=== PATIENT | male | born 1975 | race Caucasian/White ===

== ENCOUNTER 2017-05-27 19:01 | Inpatient (IN) | payer BC, OTHER ==
[~2017-05-27] VITALS: Ht 177.8 cm; Wt 68.0 kg
[2017-05-27] MEDS ORDERED: hydrALAZINE HCL 50 MG TABLET PO PRN (20:30)
[2017-05-27] MEDS ORDERED: LOPERAMIDE HCL 2 MG CAPSULE PO PRN ×2 (20:30)
[2017-05-27] MEDS ORDERED: ACETAMINOPHEN 325 MG TABLET PO PRN (20:30)
[2017-05-27] MEDS ORDERED: ONDANSETRON ODT 4 MG TAB.RAPDIS SL PRN (20:30)
[2017-05-27] MEDS ORDERED: IBUPROFEN 400 MG TABLET PO PRN (20:30)
[2017-05-27] MEDS ORDERED: THIAMINE HCL 200 MG/2 ML VIAL IM ONE (20:30)
[2017-05-27] MEDS ORDERED: LORAZEPAM 1 MG TABLET PO PRN ×2 (20:30)
[2017-05-27] MEDS ORDERED: MAG HYDROX/AL HYDROX/SIMETH 30 ML LIQUID UDC PO PRN (20:30)
[2017-05-27] MEDS ORDERED: LORAZEPAM 2 MG/1 ML VIAL IM PRN (20:30)
[2017-05-27] MEDS ORDERED: ONDANSETRON 4 MG/2 ML VIAL IM PRN (20:30)
[2017-05-27] MEDS ORDERED: MIRALAX 17 GM POWD.PACK PO PRN (20:30)
--- NOTE | 2017-05-27 20:30 | NUR ---
INTAKE ASSESSMENT BP:107/75 HR:105 SpO2:97% RR:18 T:98 Pt denies pain Pt is in stable condition and able to be admitted on the unit. Unit protocols regarding medications and vital signs every four hours were explained. Pt verbalized understanding. Will continue admission upon arrival on the unit.
--- NOTE | 2017-05-27 21:00 | NUR ---
ADMISSION NOTE CIWA:6 Pt arrived ambulatory from [facility] to the third floor accompanied by a CLINICAL HAEMATOLOGIST at 2048. Pt is a 41 year old male admitted on 05/27/17 for ETOH dependency. Pt is full code with NKA. He reports a PMHx of anxiety, depression, CHF, ascities, hypothyroidism and seizure one year ago related to withdrawal. He has a PCP by the name of Dr. Pitts located in [place]. He brought in several home medications which have been reconciled. He reports he has been to detox before in [place] in January 2017 but unable to recall name of place. He states he was hospitalized in January 2017 related to complaints of SOB for 10 days and reports that is his longest period of sobriety. He describes his current use as: 1.ETOH (vodka) pint or 6 pack of beer daily for 18 years. Last dose: pint of vodka on 05/26/17 2.Marijuana 2-3 hits 3x/week for 18 years Last dose: 2 hits on 05/26/17 He describes his withdrawal symptoms as : insomnia, anxiety, chills, sweats and tremors Upon assessment, pt is alert and oriented x4, anxious and cooperative. Speech is clear and audible. Heart rate regular. Pt denies chest pain of shortness of breath. Lung sounds clear in all lobes, abdomen soft. Bowel sounds present in all quadrants. Last BM (05/27/17) pt reports that BM is regular. Pts skin is warm, dry and intact. MD aware of pts admission. Pt oriented to room and unit. Pt is safe with bed locked in lowest position, side rails up and padded x2, breathing even and unlabored. Will continue to monitor.
[2017-05-27 21:04] LABS: *AMPHETAMINE, URINE NEGATIVE (NEGATIVE); *BARBITURATE, URINE NEGATIVE (NEGATIVE); *CANNABINOID, URINE POSITIVE (NEGATIVE); *COCCAINE, URINE NEGATIVE (NEGATIVE); *OPIATE, URINE NEGATIVE (NEGATIVE); *PHENCYCLIDINE SCREEN,URINE NEGATIVE (NEGATIVE)
[2017-05-27 21:46] LABS: BASOPHILS % (AUTO) 0.9 % (0.0-2.0); EOSINOPHILS % (AUTO) 0.6 % (0.0-7.0); HEMATOCRIT 31.3 % (40-50); HEMOGLOBIN 10.1 G/DL (14.0-18.0); LYMPHOCYTES # (AUTO) 1.4 K/UL (0.8-4.8); LYMPHOCYTES % (AUTO) 25.2 % (20.5-51.5); MEAN CORPUSCULAR HEMOGLOBIN 29.5 UUG (27.0-31.0); MEAN CORPUSCULAR HGB CONC 32 g/dL (32.0-37.0); MEAN CORPUSCULAR VOLUME 91.5 FL (82.0-92.0); MONOCYTES # (AUTO) 0.4 K/UL (0.1-1.30); MONOCYTES % (AUTO) 6.6 % (0.0-11.0); NEUTROPHILS # (AUTO) 3.6 K/UL (1.8-8.9); NEUTROPHILS % (AUTO) 66.7 % (38.5-71.5); PLATELET COUNT (AUTO) 231 K/UL (150-450); RED BLOOD CELL COUNT(AUTO) 3.42 MIL/UL (4.7-6.1); WHITE BLOOD COUNT (AUTO) 5.4 K/UL (4.0-11.2)
--- NOTE | 2017-05-27 22:00 | NUR ---
PRN ATIVAN Pt complains of anxiety and restlessness. CIWA: 6. PRN Ativan 1 mg administered as ordered. Will monitor effectiveness.
[2017-05-27 22:01] LABS: ALANINE AMINOTRANSFERASE 14 U/L (16-63); ALKALINE PHOSPHATASE 146 U/L (50-136); AMYLASE 76 U/L (25-115); ASPARTATE AMINOTRANSFERASE 30 U/L (15-37); BILIRUBIN,TOTAL 0.9 mg/dL (0.2-1.0); CARBON DIOXIDE 30 mmol/L (21-32); CHLORIDE 102 mmol/L (98-107); GLUCOSE 106 mg/dL (74-106); LIPASE 381 U/L (73-393); MAGNESIUM 1.6 mg/dL (1.8-2.4); POTASSIUM 3.9 mmol/L (3.5-5.1); TOTAL PROTEIN, SERUM 7.8 g/dL (6.4-8.2); UREA NITROGEN, BLOOD 18 mg/dL (7-18)
[2017-05-27 22:08] LABS: ETHANOL 252 MG/DL (0-0)
--- NOTE | 2017-05-27 23:00 | NUR ---
PRN ATIVAN REASSESSMENT PRN medication is effective. Pt is lying in bed with eyes closed noted to be asleep. No facial grimacing noted. Breathing is even and unlabored. Safety measures in place. Will monitor.
[2017-05-27] MEDS ORDERED: LISI-607 PO (23:11)
[2017-05-27] MEDS ORDERED: THIA100T74 PO (23:11)
[2017-05-27] MEDS ORDERED: POTA20TA10 PO (23:11)
[2017-05-27] MEDS ORDERED: MELO-105 PO (23:11)
[2017-05-27] MEDS ORDERED: METO-302 PO (23:11)
[2017-05-27] MEDS ORDERED: ASPI81TA31 PO (23:11)
[2017-05-27] MEDS ORDERED: PANT40TA4 PO (23:11)
[2017-05-27] MEDS ORDERED: FOLI1TAB16 PO (23:11)
[2017-05-27] MEDS ORDERED: SPIR25TA PO (23:11)
[2017-05-27] MEDS ORDERED: FURO40TA5 PO (23:11)
[2017-05-27] MEDS ORDERED: CITA20TA19 PO (23:11)
[2017-05-27] MEDS ORDERED: LEVO50TA8 PO (23:11)
[2017-05-27] MEDS ORDERED: MAGNESIUM OXIDE 400 MG TABLET PO ONE (23:45)
[2017-05-28] VITALS: BP 97/70
--- NOTE | 2017-05-28 | NUR ---
CIWA DEFERRED Pt is lying in bed with eyes closed noted to be asleep. Breathing is even and unlabored. Safety measures in place. Will monitor.
[2017-05-28 04:00] VITALS: BP 107/79
--- NOTE | 2017-05-28 04:00 | NUR ---
CIWA DEFERRED CIWA deferred d/t pt is lying in bed with eyes closed noted to be asleep. Breathing is even and unlabored. Safety measures in place. Will monitor.
--- NOTE | 2017-05-28 07:10 | NUR ---
END OF SHIFT Pt is a 41 year old male admitted on 05/27/17 for ETOH dependency. Pt is full code with NKA. He is on a strict 2 gram sodium controlled diet. He reports a PMHx of anxiety, depression, CHF, ascities, hypothyroidism and seizure one year ago related to withdrawal. He received PRN Ativan at 2200 for CIWA:6. Pts magnesium was 1.6 which was replaced. He has a pending order for an echocardiogram and EKG. He slept a total of 7hrs, Intake: 350mL, Void: x1, BM:0, CIWA:6. Pt remains alert and oriented x4, breathing is even and unlabored. Safety measures in place. Endorsed to oncoming shift.
--- NOTE | 2017-05-28 07:15 | NUR ---
Start of shift note SBAR report rcv'd. Pt was admitted for ETOH dependence and marijuana use. Pt is a full code, on a strict 2G NA diet and denies any allergies. Pt is starting a 5 day ativan taper today to manage his s/s of withdrawal. Pt has a PMHx anxiety, depression, CHF, ascites, withdrawal induced seizure, hypothyroidism and cirrhosis. Pt is currently resting in bed, pt is requesting to have his medications at 0800. Will administer medications per MD order. All other needs addressed at this time. Will continue to monitor pt.
[2017-05-28 08:00] VITALS: BP 125/95
[2017-05-28] MEDS: MULTIVITAMINS,THERAPEUTIC TABLET PO SCH (08:00)
[2017-05-28] MEDS: FOLIC ACID 1 MG TABLET PO SCH (08:00)
[2017-05-28] MEDS: LORAZEPAM 1 MG TABLET PO SCH ×4 (08:00→21:28)
[2017-05-28] MEDS: THIAMINE HCL 100 MG TABLET PO SCH (08:00)
[2017-05-28] MEDS ORDERED: [UNRECOGNIZED DRUG - OTHER] PO SCH (09:00)
[2017-05-28] MEDS ORDERED: PANTOPRAZOLE PO SCH (09:00)
[2017-05-28] MEDS ORDERED: ASPIRIN 81 MG TAB.CHEW PO SCH (09:00)
[2017-05-28] MEDS ORDERED: METOPROLOL SUCCINATE XL 25 MG TAB.SR.24H PO SCH (09:00)
[2017-05-28] MEDS ORDERED: LISINOPRIL 5 MG TABLET PO SCH (09:00)
[2017-05-28] MEDS ORDERED: SPIRONOLACTONE 25 MG TABLET PO SCH (09:00)
[2017-05-28] MEDS ORDERED: LEVOTHYROXINE PO SCH (09:00)
[2017-05-28] MEDS ORDERED: [UNRECOGNIZED DRUG - OTHER] PO SCH (09:00)
[2017-05-28] MEDS ORDERED: [UNRECOGNIZED DRUG - OTHER] PO SCH (09:00)
[2017-05-28] MEDS ORDERED: METOPROLOL SUCCINATE PO SCH (09:00)
[2017-05-28] MEDS ORDERED: FUROSEMIDE 40 MG TABLET PO SCH ×2 (09:00→17:00)
[2017-05-28] MEDS ORDERED: TUBERCULIN,PURIF.PROT.DERIV. 5 TU/0.1 ML TEST ID ONE (09:00)
--- NOTE | 2017-05-28 09:16 | NUR ---
MD communication Notified Dr Mccollum of ECG results "sinus tachycardia, possible left atrial enlargement, left axis deviation, anteroseptal infarct age undetermined, abnormal ECG". NNO at this time. Will continue to monitor pt.
[2017-05-28] MEDS: [UNRECOGNIZED DRUG - OTHER] PO SCH (09:33)
[2017-05-28] MEDS: LISINOPRIL PO SCH (09:33)
[2017-05-28] MEDS: SPIRONOLACTONE PO SCH (09:35)
[2017-05-28] MEDS: ASPIRIN PO SCH (09:35)
[2017-05-28] MEDS: [UNRECOGNIZED DRUG - OTHER] PO SCH (09:35)
[2017-05-28] MEDS: [UNRECOGNIZED DRUG - OTHER] PO SCH (09:35)
[2017-05-28 12:00] VITALS: BP 116/90
--- NOTE | 2017-05-28 12:15 | NUR ---
MD communication Per radiologist, pt has an ejection fraction of 10-15%, Dr Mccollum notified. NNO.
--- NOTE | 2017-05-28 12:30 | NUR ---
MD communication Pt noted to have a heart rate of 122. Dr Mccollum to place orders. Pt c/o SOB, Dr Mccollum ordered O2 via NC to titrate SpO2 >95%. Pt placed on NC, 2LPM. Pt denies any chest pain or discomfort. SOB alleviated with O2.
--- NOTE | 2017-05-28 12:30 | NUR ---
Pt education Educated pt about fluid restriction, pt verbalized his understanding. States that he keeps track of fluids in his head. Gave pt paper to track his drinks. Pt verbalized his understanding.
[2017-05-28] MEDS ORDERED: METOPROLOL TARTRATE 25 MG TABLET PO ONE (13:00)
--- NOTE | 2017-05-28 13:56 | NUR ---
Reassessment of one time order Pt Heart rate continues at 122. Dr Mccollum aware. NNO. Stated senior benefits manager has been consulted and will see the patient today. Will continue to monitor pt
[2017-05-28 16:00] VITALS: BP 109/81
[2017-05-28] MEDS ORDERED: FUROSEMIDE 80 MG TABLET PO SCH (17:00)
--- NOTE | 2017-05-28 19:09 | NUR ---
End of shift note Pt was admitted for ETOH dependence and marijuana use. Pt has a PMHx anxiety, depression, CHF, ascites, withdrawal induced seizure, hypothyroidism and cirrhosis. Pt is a full code, on a strict 2G NA and 1500mgl fluid restriction diet and denies any allergies. Pt is started his 5 day ativan taper, and is tolerating well. Pt had an EKG and ECHO done during the shift, Dr Mccollum is aware of the results and has called in a weighter for a consult. Pt is compliant with plan of care and states that he is used to being on a 1500ml fluid restricted diet and is keeping track of his fluids himself. Pt has no further complaints at this time. Will endorse SBAR to oncoming shift. All needs at this time. Will endorse SBAR to oncoming nurse. Pt drank to much fluid during the shift d/t noncompliance. Pt educated multiple times during the shift about importance of fluid restriction. Pt education reinforced, pt verbalized his understanding, instructed pt that he can only have a few sips of water over the night if needed. Pt instructed to not eat or drink anything that is not provided by dietary. Pt verbalized his understanding. HYDRO STATION OPERATOR and other staff aware. Dr Mccollum is aware.
--- NOTE | 2017-05-28 19:15 | NUR ---
START OF SHIFT Received 41 year old male patient admitted on 05/27/17 for ETOH dependency. Pt is full code with NKA. He is on a 2 gram sodium diet. He reports a PMhx of anxiety, depression, CHF, ascities, seizure one year ago related to withdrawal, hypothyroidism, and cirrhosis. He reports using ETOH (vodka) pint daily for 18 years. Last dose was pint on 05/26/17. And Marijuana 2-3 hits 3x/week. Last dose was 2 hits on 05/26/17. Per endorsement, pt received an echo this AM. Pt's EF is 10-15%. He is on room restriction and 1:1 d/t strict fluid restriction of 1500mL daily. He is using 02 via NC for comfort. Currently at 2L. Pt is alert and oriented x4, responsive to nurses greeting. Pt was educated regarding 1:1, room restriction and fluid restriction. Pt verbalized understanding. Safety measures in place. Will continue to monitor.
[2017-05-28 20:00] VITALS: BP 104/77
[2017-05-28 20:24] LABS: CREATININE 1.1 mg/dL (0.6-1.3); MAGNESIUM 1.5 mg/dL (1.8-2.4); POTASSIUM 3.6 mmol/L (3.5-5.1)
[2017-05-28] MEDS ORDERED: MAGNESIUM OXIDE 400 MG TABLET PO ONE (22:30)
[2017-05-28] MEDS ORDERED: MAGNESIUM OXIDE 400 MG TABLET ONE (23:15)
[2017-05-29] VITALS: BP 101/78
[2017-05-29] MEDS: [UNRECOGNIZED DRUG - OTHER] PO SCH (07:00)
[2017-05-29] MEDS: [UNRECOGNIZED DRUG - OTHER] PO SCH (07:00)
[2017-05-29] MEDS: LEVOTHYROXINE PO SCH (07:00)
[2017-05-29] MEDS: PANTOPRAZOLE PO SCH (07:00)
[2017-05-29 08:00] VITALS: BP 116/83
--- NOTE | 2017-05-29 08:14 | NUR ---
Medication administration Pt medication administered during medi-tech down time.
[2017-05-29] MEDS: THIAMINE HCL 100 MG TABLET PO SCH (09:00)
[2017-05-29] MEDS: [UNRECOGNIZED DRUG - OTHER] PO SCH (09:00)
[2017-05-29] MEDS: LORAZEPAM 1 MG TABLET PO SCH ×3 (09:00→20:48)
[2017-05-29] MEDS: SPIRONOLACTONE PO SCH (09:00)
[2017-05-29] MEDS: BUMETANIDE 1 MG TABLET PO SCH ×2 (09:00→17:38)
[2017-05-29] MEDS: [UNRECOGNIZED DRUG - OTHER] PO SCH (09:00)
[2017-05-29] MEDS: LISINOPRIL PO SCH (09:00)
[2017-05-29] MEDS: MULTIVITAMINS,THERAPEUTIC TABLET PO SCH (09:00)
[2017-05-29] MEDS: METOPROLOL SUCCINATE XL 25 MG TAB.SR.24H PO SCH (09:00)
[2017-05-29] MEDS: [UNRECOGNIZED DRUG - OTHER] PO SCH (09:00)
[2017-05-29] MEDS: ASPIRIN PO SCH (09:00)
[2017-05-29] MEDS: FOLIC ACID 1 MG TABLET PO SCH (09:00)
[2017-05-29 10:01] LABS: BILIRUBIN,DIRECT 1.4 mg/dL (0.0-0.2); BILIRUBIN,TOTAL 3.2 mg/dL (0.2-1.0); CREATININE 1.1 mg/dL (0.6-1.3); MAGNESIUM 1.4 mg/dL (1.8-2.4); PHOSPHOROUS 3.6 mg/dL (2.5-4.9); POTASSIUM 3.6 mmol/L (3.5-5.1); TOTAL PROTEIN, SERUM 7.2 g/dL (6.4-8.2)
[2017-05-29 10:09] LABS: HEPATITIS B SURFACE AG Negative (Negative)
[2017-05-29 11:45] LABS: BASOPHILS % (AUTO) 0.8 % (0.0-2.0); EOSINOPHILS % (AUTO) 0.6 % (0.0-7.0); HEMATOCRIT 30.4 % (40-50); HEMOGLOBIN 9.8 G/DL (14.0-18.0); LYMPHOCYTES # (AUTO) 1.2 K/UL (0.8-4.8); LYMPHOCYTES % (AUTO) 20.3 % (20.5-51.5); MEAN CORPUSCULAR HEMOGLOBIN 29.4 UUG (27.0-31.0); MEAN CORPUSCULAR HGB CONC 32 g/dL (32.0-37.0); MEAN CORPUSCULAR VOLUME 91.2 FL (82.0-92.0); MONOCYTES # (AUTO) 0.6 K/UL (0.1-1.30); NEUTROPHILS # (AUTO) 4.3 K/UL (1.8-8.9); NEUTROPHILS % (AUTO) 68.3 % (38.5-71.5); PLATELET COUNT (AUTO) 174 K/UL (150-450); RED BLOOD CELL COUNT(AUTO) 3.33 MIL/UL (4.7-6.1); WHITE BLOOD COUNT (AUTO) 6.1 K/UL (4.0-11.2)
[2017-05-29 12:30] VITALS: BP 103/80
--- NOTE | 2017-05-29 12:45 | NUR ---
MD communication Pt noted to have a BP of 103/80 and HR of 120. Notified Dr Mccollum, stated to contact engineering document control clerk.
--- NOTE | 2017-05-29 13:10 | NUR ---
communication Left message on Dr Cabral's phone regarding pt's heart rate and BP. Will continue to monitor pt. Pt states that he is comfortable at this time. Pt current heart rate is 114.
--- NOTE | 2017-05-29 13:20 | NUR ---
MD communication Dr Cabral aware of pt HR and BP. NNO at this time. Will continue to monitor pt.
[2017-05-29 15:58] LABS: BILIRUBIN,DIRECT 1.3 mg/dL (0.0-0.2)
[2017-05-29 15:59] LABS: BILIRUBIN,TOTAL 3.2 mg/dL (0.2-1.0)
[2017-05-29 16:30] VITALS: BP 107/82
[2017-05-29] MEDS ORDERED: MAGNESIUM OXIDE 400 MG TABLET PO ONE (17:45)
[2017-05-29] MEDS ORDERED: POTASSIUM CHLORIDE 20 MEQ POWDER PACKET PO ONE (17:45)
--- NOTE | 2017-05-29 19:11 | NUR ---
Start of shift note Pt was admitted for ETOH dependence and marijuana use. Pt is a full code, on a strict 2G NA and 1500mgl fluid restriction diet and denies any allergies. Pt has a PMHx anxiety, depression, CHF, ascites, withdrawal induced seizure, hypothyroidism and cirrhosis. Pt is on day 2 of his 5 day ativan taper, and is tolerating well. Pt magnesium and potassium were replaced during the shift. Pt drank 900ml of fluids, have 7 voids and [address] Mccollum is aware that pt has diarrhea. Pt states that he does not want imodium or anything for it at this time. Pt has no complaints. Pt continues on 1:1 for safety and compliance with fluid restriction. Pt has no further complaints at this time. Pt has been compliant with plan of care and diet. All needs addressed at this time. SBAR report endorsed to oncoming shift.
--- NOTE | 2017-05-29 19:15 | NUR ---
START OF SHIFT Received 41 year old male patient admitted on 05/27/17 for ETOH dependency. Pt is full code with NKA. He is on a 2 gram sodium diet. He reports a PMhx of anxiety, depression, CHF, ascities, seizure one year ago related to withdrawal, hypothyroidism, and cirrhosis. He reports using ETOH (vodka) pint daily for 18 years. Last dose was pint on 05/26/17. And Marijuana 2-3 hits 3x/week. Last dose was 2 hits on 05/26/17. He is on a 1:1 d/t strict fluid restriction of 1500mL daily. He is using 02 via NC for comfort. Per endorsement, pt's Mg and Potassium were replaced. Pt is alert and oriented x4, breathing is even and unlabored, safety measures in place. Will continue to monitor.
[2017-05-29 20:00] VITALS: BP 102/73
[2017-05-29] MEDS: diphenhydrAMINE 50 MG CAPSULE PO PRN (20:55)
--- NOTE | 2017-05-29 23:21 | NUR ---
PRN ZOFRAN Pt noted with episode of nausea and vomiting x3. PRN Zofran SL administered as ordered. Will monitor effectiveness.
--- NOTE | 2017-05-29 23:41 | NUR ---
PRN ZOFRAN REASSESSMENT PRN medication effective. Pt reports decrease in nausea and no episode of vomiting noted. Breathing even and unlabored. Safety measures in place. Will monitor.
[2017-05-30] VITALS: BP 104/69
--- NOTE | 2017-05-30 | NUR ---
CIWA DEFERRED Pt is lying in bed with eyes closed noted to be asleep. Respirations 16, breathing is even and unlabored. Safety measures in place. Will monitor.
[2017-05-30 04:00] VITALS: BP 98/75
[2017-05-30] MEDS: [UNRECOGNIZED DRUG - OTHER] PO SCH (06:31)
[2017-05-30] MEDS: PANTOPRAZOLE PO SCH (06:31)
[2017-05-30] MEDS: [UNRECOGNIZED DRUG - OTHER] PO SCH (06:31)
[2017-05-30] MEDS: LEVOTHYROXINE PO SCH (06:31)
--- NOTE | 2017-05-30 07:05 | NUR ---
Start of Shift Endorsement received from nightshift nurse. Pt is a 41 y/o male admitted for alcohol dependence. Pt has been placed on a 5 day Ativan taper. Pt reports Hx of a seizures and CHF. Pt presents with active CHF and increased HR. Pt is on PRN 2L O2. PT is to be weight every morning at 0600, pt weighs 149lb. Pt did not receive any PRN medications. PT is alert and oriented x4. Pt is in STABLE condition at this time. Remains compliant with medication and diet regimen. All needs have been met, All safety measures in place per hospital policy. Bed in lowest position, side rails up x2, call-light within reach. Will continue to monitor
--- NOTE | 2017-05-30 07:17 | NUR ---
END OF SHIFT Pt is a 41 year old male patient admitted on 05/27/17 for ETOH dependency. Pt is full code with NKA. He is on a 2 gram sodium diet. He reports a PMhx of anxiety, depression, CHF, ascities, seizure one year ago related to withdrawal, hypothyroidism, and cirrhosis. He continues on 5 day Ativan taper and is tolerating well. At 2054 he received PRN Benadryl. At 2317 he received PRN Zofran He slept a total of 8 hrs, Intake: 600mL, Void: x6, BM: x1, emesis: x3, CIWA:5 @0400. Pt remains alert and oriented x4, breathing is even and unlabored, safety measures in place. Endorsed to oncoming shift.
[2017-05-30 07:39] LABS: BILIRUBIN,DIRECT 1.2 mg/dL (0.0-0.2); BILIRUBIN,TOTAL 2.3 mg/dL (0.2-1.0); CREATININE 1.3 mg/dL (0.6-1.3); MAGNESIUM 1.6 mg/dL (1.8-2.4); PHOSPHOROUS 3.9 mg/dL (2.5-4.9); POTASSIUM 4.2 mmol/L (3.5-5.1); TOTAL PROTEIN, SERUM 7.1 g/dL (6.4-8.2)
[2017-05-30 08:00] VITALS: BP 108/71
[2017-05-30] MEDS: FOLIC ACID 1 MG TABLET PO SCH (08:50)
[2017-05-30] MEDS: SPIRONOLACTONE PO SCH (08:50)
[2017-05-30] MEDS: MULTIVITAMINS,THERAPEUTIC TABLET PO SCH (08:50)
[2017-05-30] MEDS: LORAZEPAM 1 MG TABLET PO SCH ×4 (08:50→21:35)
[2017-05-30] MEDS: [UNRECOGNIZED DRUG - OTHER] PO SCH (08:50)
[2017-05-30] MEDS: [UNRECOGNIZED DRUG - OTHER] PO SCH (08:50)
[2017-05-30] MEDS: ASPIRIN PO SCH (08:50)
[2017-05-30] MEDS: THIAMINE HCL 100 MG TABLET PO SCH (08:50)
[2017-05-30] MEDS: LISINOPRIL PO SCH (08:51)
[2017-05-30] MEDS: [UNRECOGNIZED DRUG - OTHER] PO SCH (08:51)
[2017-05-30] MEDS: BUMETANIDE 1 MG TABLET PO SCH ×2 (08:52→16:45)
[2017-05-30] MEDS: METOPROLOL SUCCINATE XL 25 MG TAB.SR.24H PO SCH (08:52)
[2017-05-30 12:00] VITALS: BP 108/80
[2017-05-30] MEDS ORDERED: MAGNESIUM OXIDE 400 MG TABLET PO ONE ×2 (12:15→21:00)
[2017-05-30 16:00] VITALS: BP 108/75
--- NOTE | 2017-05-30 18:55 | NUR ---
End of Shift Endorsement given to nightshift nurse. Pt is a 41 y/o male admitted for alcohol dependence. Pt has been placed on a 5 day Ativan taper. Pt reports Hx of a seizures and CHF. Pt presents with active CHF and increased HR. Pt is on PRN 2L O2. Pt has been compliant with fluid restriction and medication regimen. Educated pt on diet regimen and importance of following the diet regimen. Pt did not receive any PRN medications. Intake: 700ml, Void x6, BM x2. PT is alert and oriented x4. Pt is in STABLE condition at this time. Remains compliant with medication and diet regimen. All needs have been met, All safety measures in place per hospital policy. Bed in lowest position, side rails up x2, call-light within reach. Will continue to monitor
[2017-05-30 20:00] VITALS: BP 100/76
--- NOTE | 2017-05-30 20:00 | NUR ---
Start of Shift Note Received a 41 year old male patient admitted on 05/27/17 for ETOH dependency. Px is full code with NKA. He is on a 2 gram sodium diet and fluid restriction at 1500 ml a day. Px is on kitchen restrictions (snacks). He reports a PMhx of anxiety, depression, CHF, ascites, seizure one year ago related to withdrawal, hypothyroidism, and cirrhosis. He continues on 5 day Ativan taper and is tolerating well. During the rounds at 1999, px reports anxiety is on the moderate side and requested to get a pill to help him sleep tonight. Breathing is even and unlabored, safety measures in place. We'll continue to monitor.
[2017-05-30] MEDS: diphenhydrAMINE 50 MG CAPSULE PO PRN (21:35)
--- NOTE | 2017-05-30 21:35 | NUR ---
PRN Benadryl During the rounds at 1999, px reports anxiety is on the moderate side and requested to get a pill to help him sleep tonight. Benadryl 50 mg/cap, 1 cap given PO as PRN med. We'll continue to monitor.
[2017-05-31] VITALS: BP 110/81
[2017-05-31 04:00] VITALS: BP 107/77
--- NOTE | 2017-05-31 04:00 | NUR ---
CIWA deferred CIWA deferred due to the px is sleeping, to assess if the px is awake per doctor's order. We'll continue to monitor.
--- NOTE | 2017-05-31 07:14 | NUR ---
End of Shift Note 41 year old male patient admitted on 05/27/17 for ETOH dependency. Px is full code with NKA. He is on a 2 gram sodium diet and fluid restriction at 1500 ml a day. Px is on kitchen restrictions (snacks). He reports a PMhx of anxiety, depression, CHF, ascites, seizure one year ago related to withdrawal, hypothyroidism, and cirrhosis. He continues on 5 day Ativan taper and is tolerating well. During the shift, px reports anxiety is on the moderate side and requested to get a pill to help him sleep tonight, Benadryl 50 mg/cap, 1 cap given PO as PRN med. On O2 inhalation via NC at 2 LPM. Oral intake of 500 ml, voided 2x, BM x1. Slept for 8 hrs. Last CIWA 3. PPD reads negative, 0 mm induration. Wt= 149 lbs at 0600. Safety measures in place. We'll continue to monitor.
[2017-05-31 07:18] LABS: CREATININE 1.3 mg/dL (0.6-1.3); MAGNESIUM 1.9 mg/dL (1.8-2.4); POTASSIUM 3.9 mmol/L (3.5-5.1)
[2017-05-31] MEDS: LEVOTHYROXINE PO SCH (07:24)
[2017-05-31] MEDS: [UNRECOGNIZED DRUG - OTHER] PO SCH (07:24)
[2017-05-31] MEDS: [UNRECOGNIZED DRUG - OTHER] PO SCH (07:24)
[2017-05-31] MEDS: PANTOPRAZOLE PO SCH (07:24)
--- NOTE | 2017-05-31 07:30 | NUR ---
Start of shift note; Received report from night nurse. Patient is a 41 year old male admitted on 05/27/17 for ETOH, patient was placed on 5 day Ativan taper. Patient reported history of anxiety, depression, CHF, ascites, seizure 1 year ago, hypothyroidism. Patient is on a strict 2gram sodium diet and on fluid restriction 1500ml only. Patient was weighed today , 149lbs noted per endorsement. Patient's last CIWA is 3 at 2400. PRN Benadryl was given , noted to be effective per endorsement. Patient is on 2LPM oxygen with 96% SPO2. Patient is on fall and seizure precaution. Bed in lowest position call light within reach. Will continue to monitor patient.
[2017-05-31 08:00] VITALS: BP 102/76
[2017-05-31] MEDS: MULTIVITAMINS,THERAPEUTIC TABLET PO SCH (09:13)
[2017-05-31] MEDS: LORAZEPAM 1 MG TABLET PO SCH ×3 (09:13→20:48)
[2017-05-31] MEDS: THIAMINE HCL 100 MG TABLET PO SCH (09:13)
[2017-05-31] MEDS: FOLIC ACID 1 MG TABLET PO SCH (09:13)
[2017-05-31] MEDS: [UNRECOGNIZED DRUG - OTHER] PO SCH (09:14)
[2017-05-31] MEDS: ASPIRIN PO SCH (09:14)
[2017-05-31] MEDS: SPIRONOLACTONE PO SCH (09:14)
[2017-05-31] MEDS: [UNRECOGNIZED DRUG - OTHER] PO SCH (09:14)
[2017-05-31] MEDS: LISINOPRIL PO SCH (09:14)
[2017-05-31] MEDS: [UNRECOGNIZED DRUG - OTHER] PO SCH (09:14)
[2017-05-31] MEDS: BUMETANIDE 1 MG TABLET PO SCH ×2 (09:29→16:05)
[2017-05-31] MEDS: METOPROLOL SUCCINATE XL 50 MG TAB.SR.24H PO SCH (09:29)
[2017-05-31 12:00] VITALS: BP 97/72
[2017-05-31] MEDS: MAGNESIUM OXIDE 400 MG TABLET PO SCH ×2 (12:01→20:48)
[2017-05-31] MEDS ORDERED: POTASSIUM CHLORIDE 10 MEQ CAPSULE.SA PO ONE (13:00)
[2017-05-31 16:00] VITALS: BP 99/74
--- NOTE | 2017-05-31 18:56 | NUR ---
End of shift note; Patient is AOX4. Patient is a 41 year old male admitted on 05/27/17 for ETOH, patient was placed on 5 day Ativan taper. Patient reported history of anxiety, depression, CHF, ascites, seizure 1 year ago, hypothyroidism. Patient is on a strict 2gram sodium diet and on fluid restriction 1500ml only. Patient was weighed today , 149lbs noted. Patient remained compliant with treatment plan, medication regime and diet restrictions. Medications were effective in reducing withdrawal symptoms. All safety measures secured. Met all needs.
--- NOTE | 2017-05-31 19:30 | NUR ---
START OF SHIFT Patient is a 41 year old male admitted for ETOH dependency.Pt is A/O X 4, continues on 5 day Ativan taper as ordered. PMH of anxiety, depression, CHF, ascites, seizure 1 year ago, hypothyroidism. Patient is on a strict 2gram sodium diet and on fluid restriction 1500ml only. Patient is compliant with his diet and medication regime.Received in room in a stable condition,c/o mild anxiety,no c/o pain noted. All safety measures in place per hospital policy,call light within reach,will continue to monitor for safety.
[2017-05-31 20:00] VITALS: BP 91/67
[2017-05-31] MEDS: diphenhydrAMINE 50 MG CAPSULE PO PRN (22:18)
--- NOTE | 2017-05-31 22:20 | NUR ---
PRN BENADRYL GIVEN ORDERED FOR C/O INSOMNIA.WILL MONITOR.
--- NOTE | 2017-05-31 23:20 | NUR ---
PRN F/U PT IS RESTING IN BED WITH EYES CLOSED,APPEARS TO BE ASLEEP.NO S/S OF DISTRESS NOTED,WILL CONTINUE TO MONITOR.
--- NOTE | 2017-06-01 | NUR ---
V/S REFUSED,CIWA DEFERRED PT DIS NOT WANT TO BE WOKEN UP FOR V/S IF SLEEPING.CIWA DEFERRED D/T PT BEING FAST ASLEEP.
--- NOTE | 2017-06-01 04:00 | NUR ---
V/S REFUSED,[facility] DEFERRED PT DID NOT WANT TO BE WOKEN UP FOR V/S IF SLEEPING.[facility] DEFERRED D/T PT BEING FAST ASLEEP.NO S/S OF DISTRESS NOTED,WILL CONTINUE TO MONITOR.
[2017-06-01] MEDS: [UNRECOGNIZED DRUG - OTHER] PO SCH (06:36)
[2017-06-01] MEDS: PANTOPRAZOLE PO SCH (06:36)
[2017-06-01] MEDS: [UNRECOGNIZED DRUG - OTHER] PO SCH (06:36)
[2017-06-01] MEDS: LEVOTHYROXINE PO SCH (06:36)
--- NOTE | 2017-06-01 06:50 | NUR ---
END OF SHIFT Patient is a 41 year old male admitted for ETOH dependency.Pt is A/O X 4, continues on 5 day Ativan taper as ordered. PMH of anxiety, depression, CHF, ascites, seizure 1 year ago, hypothyroidism. Patient is on a strict 2gram sodium diet and on fluid restriction 1500ml only. Patient is compliant with his diet and medication regime.Last CIWA=3.PRN Benadryl was given for insomnia with good effect.Pt slept 9 hours,fluid intake was 500 mls,voided x 3,stool x 1. All safety measures in place per hospital policy,call light within reach,will continue to monitor for safety. DAILY WT = 151 POUNDS.
[2017-06-01 07:09] LABS: CREATININE 1.4 mg/dL (0.6-1.3); MAGNESIUM 1.9 mg/dL (1.8-2.4); PHOSPHOROUS 4.2 mg/dL (2.5-4.9); POTASSIUM 4.9 mmol/L (3.5-5.1)
--- NOTE | 2017-06-01 07:30 | NUR ---
START OF SHIFT NOTE Received report from night nurse, 41 year old male patient admitted for ETOH dependence. Patient is on a 2 gram sodium diet and fluid restriction at 1500 ml a day and Patient is also on kitchen restrictions (snacks). Patient has a PMH of anxiety, depression, CHF, ascites, seizure one year ago related to withdrawal, hypothyroidism, and cirrhosis. Patient is continues on 5 day Ativan taper and is tolerating well. Per endorsement Pt received PRN Benadryl effective per night nurse, slept for 9 hours, last CIWA was 3. Patient received awake, alert and oriented x4, Educated patient regarding plan of care for the day and medication regimen with good verbal understanding. Safety measures in place. call light with in reach, will continue to monitor.
[2017-06-01 08:00] VITALS: BP 110/80
[2017-06-01] MEDS: MULTIVITAMINS,THERAPEUTIC TABLET PO SCH (08:30)
[2017-06-01] MEDS: LORAZEPAM 1 MG TABLET PO SCH ×2 (08:31→21:33)
[2017-06-01] MEDS: FOLIC ACID 1 MG TABLET PO SCH (08:31)
[2017-06-01] MEDS: BUMETANIDE 1 MG TABLET PO SCH ×3 (08:31→17:00)
[2017-06-01] MEDS: THIAMINE HCL 100 MG TABLET PO SCH (08:31)
[2017-06-01] MEDS: MAGNESIUM OXIDE 400 MG TABLET PO SCH (08:31)
[2017-06-01] MEDS: METOPROLOL SUCCINATE XL 50 MG TAB.SR.24H PO SCH (08:32)
[2017-06-01] MEDS: ASPIRIN PO SCH (08:33)
[2017-06-01] MEDS: [UNRECOGNIZED DRUG - OTHER] PO SCH (08:33)
[2017-06-01] MEDS: LISINOPRIL PO SCH (08:34)
[2017-06-01] MEDS: [UNRECOGNIZED DRUG - OTHER] PO SCH (08:34)
[2017-06-01] MEDS: [UNRECOGNIZED DRUG - OTHER] PO SCH (08:34)
[2017-06-01] MEDS: SPIRONOLACTONE PO SCH (08:34)
[2017-06-01 12:00] VITALS: BP 95/73
[2017-06-01 16:00] VITALS: BP 108/74
--- NOTE | 2017-06-01 16:21 | NUR ---
DUPLICATE ORDER Bumex 1mg PO non administered, Pt received Bumex 2mg at 1621.
--- NOTE | 2017-06-01 19:01 | NUR ---
END OF SHIFT NOTE Patient is alert oriented x4. 41 year old male patient admitted for ETOH dependence. Patient is on a 2 gram sodium diet and fluid restriction at 1500 ml a day and Patient is also on kitchen restrictions (snacks). Patient is continues on 5 day Ativan taper and is tolerating well. Patient did not receive any PRN during shift. Skin intact warm and dry to touch. Last COWS score was 3. Patient remained compliant with treatment plan and medication regime. Encourage Po fluids as tolerated. All safety measures in place, Call light within reach. Patient endorsed to night nurse in stable condition. Addendum: 06/02/17 at 1908 by SYLVIA POLK LVN RUBY SCORE NOT COWS ERROR IN CHARTING.
[2017-06-01 20:00] VITALS: BP 98/74
--- NOTE | 2017-06-01 20:00 | NUR ---
Start of Shift Notes Received a 41 year old male admitted 05/27/2017 for ETOH dependence. Patient is on a 2 gram sodium diet and fluid restriction at 1500 ml a day and Patient is also on kitchen restrictions (snacks). Patient is continues on 5 day Ativan taper and is tolerating well. Patient remained compliant with treatment plan and medication regime. During the rounds at 2000, VS are WNL, reports anxiety on moderate side. Px requested for Benadryl pill to help him sleep tonight. All safety measures in place, Call light within reach. We'll continue to monitor.
[2017-06-01] MEDS ORDERED: MAGNESIUM OXIDE 400 MG TABLET PO ONE (21:00)
[2017-06-01] MEDS: diphenhydrAMINE 50 MG CAPSULE PO PRN (21:33)
--- NOTE | 2017-06-01 21:33 | NUR ---
PRN Benadryl Px requested for a pill to help him sleep tonight, Benadryl 50 mg/cap, 1 cap given PO as PRN med. We'll continue to monitor.
[2017-06-02] VITALS: BP 90/60
[2017-06-02 04:00] VITALS: BP 98/73
--- NOTE | 2017-06-02 04:00 | NUR ---
CIWA deferred CIWA deferred due to the px is sleeping, to assess if the px is awake per doctor's order. Respirations are even and unlabored. We'll continue to monitor.
[2017-06-02] MEDS: [UNRECOGNIZED DRUG - OTHER] PO SCH (06:54)
[2017-06-02] MEDS: PANTOPRAZOLE PO SCH (06:54)
[2017-06-02] MEDS: LEVOTHYROXINE PO SCH (06:54)
[2017-06-02] MEDS: [UNRECOGNIZED DRUG - OTHER] PO SCH (06:54)
--- NOTE | 2017-06-02 07:13 | NUR ---
End of Shift Notes 41 year old male admitted 05/27/2017 for ETOH dependence. Patient is on a 2 gram sodium diet and fluid restriction at 1500 ml a day and Patient is also on kitchen restrictions (snacks). Patient is continues on 5 day Ativan taper and is tolerating well. Patient remained compliant with treatment plan and medication regime. Px is on O2 inhalation at 2 LPM PRN via NC. During the shift, reports anxiety on moderate side. Px requested for Benadryl pill to help him sleep tonight, Benadryl 50 mg/cap, 1 cap given PO as PRN med . Oral intake of 500 ml, voided x2, no BM. Slept for 7 hrs. All safety measures in place, Call light within reach. We'll continue to monitor.
--- NOTE | 2017-06-02 07:35 | NUR ---
START OF SHIFT NOTE Received report from night nurse, 41 year old male patient admitted for ETOH dependence. Patient is on a 2 gram sodium diet and fluid restriction at 1500 ml a day and Patient is also on kitchen restrictions (snacks). Patient has a PMH of anxiety, depression, CHF, ascites, seizure one year ago related to withdrawal, hypothyroidism, and cirrhosis. Patient is continues on 5 day Ativan taper and is tolerating well. Per endorsement Pt received PRN Benadryl effective per night nurse, slept for 7 hours, last CIWA was 3. Patient received awake, alert and oriented x4, Educated patient regarding plan of care for the day and medication regimen with good verbal understanding. Safety measures in place. call light with in reach, will continue to monitor.
[2017-06-02 08:00] VITALS: BP 106/80
[2017-06-02] MEDS: THIAMINE HCL 100 MG TABLET PO SCH (08:33)
[2017-06-02] MEDS: FOLIC ACID 1 MG TABLET PO SCH (08:33)
[2017-06-02] MEDS: MULTIVITAMINS,THERAPEUTIC TABLET PO SCH (08:33)
[2017-06-02] MEDS: [UNRECOGNIZED DRUG - OTHER] PO SCH (08:34)
[2017-06-02] MEDS: ASPIRIN PO SCH (08:34)
[2017-06-02] MEDS: SPIRONOLACTONE PO SCH (08:34)
[2017-06-02] MEDS: [UNRECOGNIZED DRUG - OTHER] PO SCH (08:34)
[2017-06-02] MEDS: MAGNESIUM OXIDE 400 MG TABLET PO SCH (08:34)
[2017-06-02] MEDS: BUMETANIDE 1 MG TABLET PO SCH ×2 (08:34→17:18)
[2017-06-02] MEDS: [UNRECOGNIZED DRUG - OTHER] PO SCH (08:34)
[2017-06-02] MEDS: LISINOPRIL PO SCH (08:34)
[2017-06-02] MEDS ORDERED: LORAZEPAM 1 MG TABLET PO SCH (09:00)
[2017-06-02] MEDS: METOPROLOL SUCCINATE XL 50 MG TAB.SR.24H PO SCH (09:23)
[2017-06-02 12:00] VITALS: BP 101/71
--- NOTE | 2017-06-02 13:45 | NUR ---
Activity Group Note: Client participated in "painting" activity. Intervention goal was to increase task focus and leisure skills. Client appeared to have a depressed mood with flat affect. Client appeared to have a coherent and goal-directed thought process; however, he was unable to complete the task due to being called away by staff. Client did not initiate conversation with his peers, but stated, "I want to show this painting to my kids." Client benefits from leisure activities. general office worker will continue to encourage participation.
[2017-06-02 16:00] VITALS: BP 112/76
[2017-06-02] MEDS ORDERED: METO50TA7 PO (16:27)
[2017-06-02] MEDS ORDERED: PANT40TA4 PO (16:27)
[2017-06-02] MEDS ORDERED: BUME1TAB13 PO (16:27)
[2017-06-02] MEDS ORDERED: DIPH50CA37 PO (16:27)
[2017-06-02] MEDS ORDERED: LISI-607 PO (16:27)
[2017-06-02] MEDS ORDERED: Magnesium Oxide PO (16:27)
[2017-06-02] MEDS ORDERED: ASPI81TA31 PO (16:27)
[2017-06-02] MEDS ORDERED: LEVO50TA8 PO (16:27)
[2017-06-02] MEDS ORDERED: SPIR25TA PO (16:27)
--- NOTE | 2017-06-02 19:02 | NUR ---
END OF SHIFT NOTE Patient is alert oriented x4. 41 year old male patient admitted for ETOH dependence. Patient is on a 2 gram sodium diet and fluid restriction at 1500 ml a day and Patient is also on kitchen restrictions (snacks). Patient completed his 5 day Ativan taper and tolerated well. Patient did not receive any PRN during shift. Skin intact warm and dry to touch. Last CIWA score was 3. Patient scheduled for discharge in AM. Patient remained compliant with treatment plan and medication regime. Encourage Po fluids as tolerated. All safety measures in place, Call light within reach. Patient endorsed to night nurse in stable condition. Addendum: 06/02/17 at 1906 by SYLVIA POLK LVN CIWA SCORE WAS 2.
--- NOTE | 2017-06-02 19:30 | NUR ---
START OF SHIFT Patient is a 41 year old male admitted for ETOH dependency.Pt is A/O X 4, continues on 5 day Ativan taper as ordered. PMH of anxiety, depression, CHF, ascites, seizure 1 year ago, hypothyroidism. Patient is on a strict 2gram sodium diet and on fluid restriction 1500ml only. Patient is compliant with his diet and medication regime.Received sleeping in room.All safety measures in place per hospital policy,call light within reach,will continue to monitor for safety.
[2017-06-02 20:00] VITALS: BP 110/72
[2017-06-02] MEDS: diphenhydrAMINE 50 MG CAPSULE PO PRN (22:30)
--- NOTE | 2017-06-02 22:30 | NUR ---
PRN BENADRYL GIVEN ORDERED FOR C/O INSOMNIA PER PT REQUEST.WILL MONITOR.
[2017-06-02] MEDS ORDERED: diphenhydrAMINE 50 MG CAPSULE ONE (22:41)
--- NOTE | 2017-06-02 23:30 | NUR ---
PRN F/U PRN BENADRYL IS EFFECTIVE.PT IS RESTING IN BED WITH EYES CLOSED.
--- NOTE | 2017-06-03 | NUR ---
V/S REFUSED,[facility] DEFERRED PT DID NOT WANT TO BE WOKEN UP FOR V/S IF SLEEPING.[facility] DEFERRED D/T PT BEING FAST ASLEEP.
--- NOTE | 2017-06-03 04:00 | NUR ---
V/S REFUSED,[facility] DEFERRED PT DID NOT WANT TO BE WOKEN UP FOR V/S IF SLEEPING.[facility] DEFERRED D/T PT BEING FAST ASLEEP
[2017-06-03] MEDS: [UNRECOGNIZED DRUG - OTHER] PO SCH (06:27)
[2017-06-03] MEDS: [UNRECOGNIZED DRUG - OTHER] PO SCH (06:27)
[2017-06-03] MEDS: LEVOTHYROXINE PO SCH (06:27)
[2017-06-03] MEDS: PANTOPRAZOLE PO SCH (06:27)
--- NOTE | 2017-06-03 06:45 | NUR ---
END OF SHIFT Patient is a 41 year old male admitted for ETOH dependency.Pt is A/O X 4, continues on 5 day Ativan taper as ordered. PMH of anxiety, depression, CHF, ascites, seizure 1 year ago, hypothyroidism. Patient is on a strict 2gram sodium diet and on fluid restriction 1500ml only. Patient is compliant with his diet and medication regime. PRN Benadryl was given for insomnia with good effect.Pt slept 10 hrs,fluid intake was 1355 mls,voided x 2 .All safety measures in place per hospital policy,call light within reach,will continue to monitor for safety.
--- NOTE | 2017-06-03 07:08 | NUR ---
PT IS SCHEDULED FOR DISCHARGE TODAY.
--- NOTE | 2017-06-03 07:30 | NUR ---
START OF SHIFT Pt 41 y/o male admitted for etoh and marijuana. Pt received in room on bed with eyes closed resting, but easily arousable to name. Pt alert and oriented to name, place, and time. Perrla. Skin warm and dry to touch. Respirations even and unlabored. It was reported that pt slept for 6 hours last night. Bed on lowest position with side rails x2 up for safety. Call light within reach. No distress noted at this time. Pt is scheduled to be discharged today.
[2017-06-03 08:00] VITALS: BP 103/77
[2017-06-03] MEDS: BUMETANIDE 1 MG TABLET PO SCH (09:15)
[2017-06-03] MEDS: FOLIC ACID 1 MG TABLET PO SCH (09:15)
[2017-06-03] MEDS: THIAMINE HCL 100 MG TABLET PO SCH (09:15)
[2017-06-03] MEDS: MULTIVITAMINS,THERAPEUTIC TABLET PO SCH (09:15)
[2017-06-03] MEDS: MAGNESIUM OXIDE 400 MG TABLET PO SCH (09:15)
[2017-06-03] MEDS: [UNRECOGNIZED DRUG - OTHER] PO SCH (09:16)
[2017-06-03] MEDS: SPIRONOLACTONE PO SCH (09:16)
[2017-06-03] MEDS: [UNRECOGNIZED DRUG - OTHER] PO SCH (09:16)
[2017-06-03] MEDS: ASPIRIN PO SCH (09:16)
[2017-06-03 09:17] VITALS: BP 103/74
[2017-06-03] MEDS: [UNRECOGNIZED DRUG - OTHER] PO SCH (09:17)
[2017-06-03] MEDS: METOPROLOL SUCCINATE XL 50 MG TAB.SR.24H PO SCH (09:17)
[2017-06-03] MEDS: LISINOPRIL PO SCH (09:17)
--- NOTE | 2017-06-03 10:48 | NUR ---
D/C NOTES Pt is A/O x4. V/S remain WNL. Pt denies SI/HI or hallucinations. Pt shows no s/s of acute withdrawal at this time, and is stable. MD has medically cleared pt for d/c . Education on Hepatitis C, smoking cessation and medication side effects provided. Pt verbalizes understanding. All pt belongings are in belonging bag, including prescriptions, and home medications. Refuses PNU vaccination. Pt is being accompanied by [employer] at this time to be transported to rehab. All needs met.
== END 2017-06-03 10:48 | disposition other institution (70) | DRG 895 ==
LOC: SRC 19:51
PROVIDERS: ADMIT Internal Medicine; ATTEND Internal Medicine
DX: F10.232 Alcohol dependence with withdrawal with perceptual disturbance (principal); I50.23 Acute on chronic systolic (congestive) heart failure; I42.6 Alcoholic cardiomyopathy; I27.20 Pulmonary hypertension, unspecified; E83.42 Hypomagnesemia; I07.1 Rheumatic tricuspid insufficiency; K76.6 Portal hypertension; Y90.7 Blood alcohol level of 200-239 mg/100 ml; H91.92 Unspecified hearing loss, left ear; E03.9 Hypothyroidism, unspecified; Z81.1 Family history of alcohol abuse and dependence; Z82.49 Family history of ischemic heart disease and other diseases of the circulatory system; F41.9 Anxiety disorder, unspecified; D64.9 Anemia, unspecified; E87.6 Hypokalemia; Z79.899 Other long term (current) drug therapy; K70.31 Alcoholic cirrhosis of liver with ascites; I50.82 Biventricular heart failure; E86.0 Dehydration; F12.90 Cannabis use, unspecified, uncomplicated
CPT/HCPCS: 36415; 70030-TC; 80307; 80349; 82746; 83550; 83690; 83735; 84100; 85025; 85610; 86580; 86592; 86705; 86803; 87340; 87806; 93005; 93307; A4663; G0480; J3411; Q0162; Q0163